=== PATIENT | male | born 1990 ===

== ENCOUNTER 2017-01-28 19:01 | Emergency (ER) | payer SELFPAY ==
[2017-01-28 19:18] VITALS: PULSE 66; RESP 20; TEMP 98.7; O2SAT 100
[2017-01-28 19:32] VITALS: BP 146/87
[2017-01-28] MEDS ORDERED: CEPHALEXIN 250 MG/5 ML BOTTLE PO ONE (19:32)
[2017-01-28] MEDS ORDERED: CEPHALEXIN 250 MG/5 ML BOTTLE ONE (19:34)
== END 2017-01-28 19:42 | disposition home or self-care (01) | DRG 603 ==
LOC: ED 19:01
DX: L03.116 Cellulitis of left lower limb (principal)
CPT/HCPCS: 99282